=== PATIENT | male | born 2000 | race Caucasian/White ===

== ENCOUNTER 2018-11-11 | Emergency (ER) | payer MEDICAID ==
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
--- NOTE | 2018-11-11 09:02 | Diagnostic Imaging Report ---
Portable chest x-ray Time: 00 37 History: Chest pain Allowing for portable technique the heart size is normal. No focal pulmonary parenchymal processes. No hilar or mediastinal abnormalities. Impression: No acute abnormalities.
== END 2018-11-11 01:25 | disposition home or self-care (01) ==
LOC: ER
DX: S20.211A Contusion of right front wall of thorax, initial encounter (principal); Z88.0 Allergy status to penicillin; V19.9XXA Pedal cyclist (driver) (passenger) injured in unspecified traffic accident, initial encounter; Y93.89 Activity, other specified; Y92.410 Unspecified street and highway as the place of occurrence of the external cause; Y99.8 Other external cause status
CPT/HCPCS: 99283; 96372; 71045; J1885; Z7502